=== PATIENT | male | born 1995 | race Caucasian/White ===

== ENCOUNTER 2019-01-31 10:44 | Outpatient (CLI) | payer BC | END 2019-01-31 10:45 | disposition home or self-care (01) | LOC: CTENTCT 10:44 | PROVIDERS: ATTEND Otolaryngology Plastic Surgery within the Head & Neck | DX: J32.9 Chronic sinusitis, unspecified (principal) | CPT/HCPCS: 70486 ==

== ENCOUNTER 2019-02-22 07:49 | Day surgery (SDC) | payer BC ==
[2019-02-21 11:28] VITALS: BMI 20.5
[2019-02-22] MEDS ORDERED: Oxymetazoline HCl 0.05% ( 15 ML ) ONE ×2 (08:47→09:35)
[2019-02-22] MEDS ORDERED: Lidocaine 1% w/Epinephrine 1:100K 20 ML VIAL ONE (09:35)
[2019-02-22] MEDS ORDERED: Fentanyl 100 MCG/2 ML VIAL ONE (09:36)
[2019-02-22] MEDS ORDERED: Ondansetron PF 4 MG/2 ML Vial ONE (10:10)
[2019-02-22] MEDS ORDERED: Lidocaine 1% PF 5 ML VIAL ONE (10:10)
[2019-02-22] MEDS ORDERED: PROPOFOL 200 MG/20 ML VIAL ONE (10:10)
[2019-02-22] MEDS ORDERED: Succinylcholine Chloride 20 MG/ML 10 ml SYRINGE FS ONE (10:10)
[2019-02-22] MEDS ORDERED: Dexamethasone 20 MG/5 ML VIAL ONE (10:10)
--- NOTE | 2019-02-23 10:42 | OP ---
DATE OF PROCEDURE: 02/22/2019 PREOPERATIVE DIAGNOSES: 1. Chronic rhinosinusitis. 2. Bilateral inferior turbinate hypertrophy. 3. Nasal obstruction. POSTOPERATIVE DIAGNOSES: 1. Chronic rhinosinusitis. 2. Bilateral inferior turbinate hypertrophy. 3. Nasal obstruction. PROCEDURES: 1. Bilateral endoscopic sinus surgery, total ethmoidectomies. 2. Bilateral endoscopic sinus surgery, maxillary antrostomies. 3. Bilateral endoscopic sinus surgery, frontal sinusotomies. 4. Bilateral inferior turbinate submucosal resection. ESTIMATED BLOOD LOSS: 20 mL. COMPLICATION: None. ANESTHESIA: GETA. DESCRIPTION OF PROCEDURE: The patient was taken to operating room and placed supine on the table. General endotracheal anesthesia was obtained by the anesthesia staff. Tube was secured in the left lower lip and the patient was placed in the beach chair position. Following this, the Afrin pledgets were placed in the nasal cavity as the patient was prepped and draped for standard nasal procedure. Following this, the 0-degree endoscope was advanced in the nasal cavity and 1% lidocaine with 1:100,000 epinephrine was injected into the inferior turbinates, middle turbinates, and lateral nasal wall bilaterally. Following this, the middle turbinates were gently medialized using a [place] elevator and the uncinate process was exposed bilaterally. The uncinate process was then anteriorly fractured using a ball-ended probe. Following this, the uncinate was removed using the 0-degree microdebrider and up-biting Blakesley forceps. Following this, the natural maxillary sinus ostia was identified and was gently palpated using a ball-ended probe. Following this, the natural maxillary sinus ostia was widened using the 40-degree microdebrider and the straight Blakesley forceps bilaterally. Following this, the ethmoidal bulla was identified and was punctured on its medial and inferior aspect bilaterally and was removed using the microdebrider and the up-biting Blakesley forceps. Following this, the grand lamella was identified and was then punctured into the posterior ethmoidal cells using the 0-degree microdebrider. Working from posterior to anterior, the ethmoidal cells were opened in a mucosal sparing technique. Following this, the 45-degree endoscope was used to visualize the frontal recess cells and frontal sinus ostia. Following this, the 45-degree endoscope along with the 40-degree microdebrider blade were used to widen and open the frontal sinus ostia bilaterally. Following this, the inferior turbinates were punctured on the anterior and inferior aspects with the submucosal microdebrider and submucosal resection was performed of the anterior and inferior portions of the inferior turbinates bilaterally. Following this, the nasal cavity was irrigated. Mirapex was placed within the middle meatus. The patient tolerated the procedure well. Job ID: [id number]
== END 2019-02-22 13:26 | disposition home or self-care (01) ==
LOC: SDC 07:49
PROVIDERS: ATTEND Otolaryngology Plastic Surgery within the Head & Neck
PROC: 099Q8ZZ Drainage of Right Maxillary Sinus, Via Natural or Artificial Opening Endoscopic (ICD-10-PCS; principal; 2019-02-22)
PROC: 099V8ZZ Drainage of Left Ethmoid Sinus, Via Natural or Artificial Opening Endoscopic (ICD-10-PCS; principal; 2019-02-22)
PROC: 099S8ZZ Drainage of Right Frontal Sinus, Via Natural or Artificial Opening Endoscopic (ICD-10-PCS; principal; 2019-02-22)
PROC: 099U8ZZ Drainage of Right Ethmoid Sinus, Via Natural or Artificial Opening Endoscopic (ICD-10-PCS; principal; 2019-02-22)
PROC: 099R8ZZ Drainage of Left Maxillary Sinus, Via Natural or Artificial Opening Endoscopic (ICD-10-PCS; principal; 2019-02-22)
PROC: 09BL8ZZ Excision of Nasal Turbinate, Via Natural or Artificial Opening Endoscopic (ICD-10-PCS; principal; 2019-02-22)
PROC: 099T8ZZ Drainage of Left Frontal Sinus, Via Natural or Artificial Opening Endoscopic (ICD-10-PCS; principal; 2019-02-22)
DX: J32.8 Other chronic sinusitis (principal); J34.3 Hypertrophy of nasal turbinates; J34.89 Other specified disorders of nose and nasal sinuses; I10 Essential (primary) hypertension
CPT/HCPCS: J0131; J1100; J2001; J2405; J2704; J3010